=== PATIENT | female | born 1995 | race Caucasian/White ===

== ENCOUNTER → 2018-03-03 | Outpatient (REF) | payer OTHER, SELFPAY | LOC: LAB 11:30 | PROVIDERS: Visit Provider Nurse Practitioner Family | DX: R50.9 Fever, unspecified (principal); R05 Cough | CPT/HCPCS: 87400; 99058 ==

== ENCOUNTER → 2018-11-24 16:01 | Outpatient (REF) | payer OTHER, SELFPAY | LOC: LAB 16:01 | PROVIDERS: Visit Provider Nurse Practitioner Family | DX: N39.0 Urinary tract infection, site not specified (principal) | CPT/HCPCS: 87077; 87086; 87186 ==

== ENCOUNTER → 2019-01-25 16:00 | Outpatient (REF) | payer OTHER, SELFPAY | LOC: LAB 16:00 | PROVIDERS: Visit Provider Nurse Practitioner Family | DX: N39.0 Urinary tract infection, site not specified (principal) | CPT/HCPCS: 87086 ==

== ENCOUNTER 2019-07-05 19:12 | Emergency (ER) | payer OTHER, SELFPAY ==
[2019-07-05 19:26] VITALS: BP 104/73; PULSE 94; RESP 15; TEMP 37.1; O2SAT 96; BMI 21.9
--- NOTE | 2019-07-05 21:03 | ED_ITS ---
HPI - Headache General Chief Complaint: Headache Stated Complaint: headache, vomiting, body pain Time Seen by Provider: 07/05/19 20:27 Source: patient Mode of arrival: ambulatory Limitations: no limitations History of Present Illness HPI Narrative: The patient is a 23-year-old female who presents with headache. He says he has actually had a headache for about a week. However 2 days ago she started to have fever and sweats and her headache has progressively gotten worse. She has been vomiting unable to keep anything down. She typically does not get migraines this is worse headache she has ever had. She was seen by her PCP yesterday they did blood work and prescribed her antibiotics for sinus infection. She states that her sinuses are not extremely tender. She overall feels worse. She is able to move her neck however most it makes her head worse. She no rashes. Complaint: headache Related Data Previous Rx's Medication Instructions Recorded ondansetron 4 mg PO Q8H PRN #10 tab 07/05/19 Allergies Allergy/AdvReac Type Severity Reaction Status Date / Time acetaminophen [From Lortab] Allergy Verified 07/05/19 19:26 adhesive Allergy Verified 07/05/19 19:26 hydrocodone [From Lortab] Allergy Verified 07/05/19 19:26 metoclopramide [From Reglan] Allergy Verified 07/05/19 19:26 promethazine Allergy Verified 07/05/19 19:26 Review of Systems Review of Systems ROS Unobtainable: All systems reviewed & are unremarkable except as noted in HPI and below Constitutional Constitutional: Reports body ache(s), Reports chills, Reports fatigue, Reports fever(s) and Reports poor appetite Eyes Eyes: Denies change in vision, Denies eye discharge, Denies irritation and Denies loss of vision ENT Ears, Nose, Mouth, and Throat: Denies change in voice, Denies neck pain and Denies sore throat Cardiovascular Cardiovascular: Denies chest pain, Denies irregular heart rhythm, Denies lightheadedness, Denies palpitations, Denies dyspnea, Denies dyspnea on exertion and Denies orthopnea Respiratory Respiratory: Denies cough, Denies dyspnea, Denies dyspnea on exertion and Denies wheezing Gastrointestinal Gastrointestinal: Denies abdominal pain, Denies change in bowel habits, Denies diarrhea, Denies nausea and Denies vomiting Genitourinary Genitourinary: Denies hematuria, Denies flank pain, Denies urinary incontinence and Denies urinary urgency Musculoskeletal Musculoskeletal: Denies neck pain Integumentary/Breasts Skin/Breast: Denies pruritus, Denies erythema, Denies rash and Denies wounds Neurologic Neurologic: Denies loss of vision Endocrine Endocrine: Reports fatigue and Denies palpitations Allergic/Immunologic Allergic/Immunologic: Denies wheezing [facility] Medical History Status post tubal ligation (Acute) Tachycardia (Acute) Surgical History Status post appendectomy (Acute) Social History Smoking Status: Unknown if ever smoked Social History (Updated 07/05/19 @ 21:15 by Rosalina Corona DO) marital status: Smoking Status: Unknown if ever smoked Exam Initial Vital Signs Initial Vital Signs: Vital Signs Temperature 98.8 F 07/05/19 19:26 Pulse Rate 94 H 07/05/19 19:26 Respiratory Rate 15 07/05/19 19:26 Blood Pressure 104/73 07/05/19 19:26 Pulse Oximetry 96 07/05/19 19:26 GENERAL: Alert female and in no acute distress. HEENT: Head atraumatic,EOMI, pupils reactive, moves neck easily negative Brudzinski's EARS: Tympanic membranes visualized, no erythema or bulging, no hemotympanum PHARYNX: No erythema, no tonsillar exudate, no cervical lymphadenopathy CARDIOVASCULAR: Regular rate and rhythm without murmurs, rubs or gallops. RESPIRATORY: Breath sounds equal bilaterally, no wheezes rales or rhonchi. ABDOMEN: Soft, nontender. Normoactive bowel sounds all 4 quadrants. No guarding or rebound. : No CVA tenderness EXTREMITIES: Normal range of motion, no clubbing or edema. Neurovascularly intact NEUROLOGICAL: Alert and oriented x4.Normal gait and speech. Cranial nerves II through XII grossly intact. [Good catilp-me-byvc, good uumn-xs-slfi, strengno rashes or lesions. Skin: No rash no vesicles no lesions Course Orders Ordered: ED Orders 07/05/19 20:45 Complete Blood Count AUTO DIFF Stat Comprehensive Metabolic Panel Stat Lipase Stat Test Serum,Qual Stat Procalcitonin Stat 07/05/19 21:10 CT head/brain wo con Stat XR chest 2V Stat 07/05/19 21:27 Blood Culture Stat 07/05/19 21:32 Lactate (Lactic Acid) Stat Discontinued Medications Hydromorphone HCl (Dilaudid) 0.5 mg IV NOW ONE Stop: 07/05/19 23:10 Last Admin: 07/05/19 23:16 Dose: 0.5 mg Documented by: LANDY Sodium Chloride (Normal Saline 0.9%) 1,000 mls @ 1,000 mls/hr IV BOLUS ONE Stop: 07/05/19 22:09 Last Infusion: 07/05/19 23:16 Dose: 0 mls/hr Documented by: Admin: 07/05/19 21:33 Dose: 1,000 mls/hr Documented by: LANDY Ketorolac Tromethamine (Toradol) 15 mg IV NOW ONE Stop: 07/05/19 21:13 Last Admin: 07/05/19 21:33 Dose: 15 mg Documented by: LANDY Ondansetron HCl (Zofran) 4 mg IV NOW ONE Stop: 07/05/19 21:13 Last Admin: 07/05/19 21:33 Dose: 4 mg Documented by: LANDY Vital Signs Vital signs: Vital Signs - 8 hr 07/05/19 19:26 07/06/19 00:15 Temperature 98.8 F Pulse Rate 94 H 55 L Respiratory Rate 15 Blood Pressure 104/73 96/46 L Pulse Oximetry 96 98 MDM - Headache Lab Data Attestation: I reviewed the patient's lab results. Result diagrams: 07/05/19 20:45 07/05/19 20:45 Labs: Lab Results 07/05/19 07/05/19 07/05/19 Range/Units 20:45 20:45 20:45 WBC 7.3 (4.5-11.0) X10^3/uL RBC 5.08 (4.0-5.2) X10^6/uL Hgb 14.3 (12.0-16.0) g/dL Hct 42.4 (36-46) % MCV 83.4 (80-100) fL MCH 28.1 (26-34) PG MCHC 33.6 (30-36) % RDW 13.9 (11.6-14.8) % Plt Count 277 (150-400) X10^3/uL Neut % (Auto) 69.9 (50-75) % Lymph % (Auto) 20.2 L (25-40) % [place] % (Auto) 8.5 (3-14) % Eos % (Auto) 0.9 L (2-4) % Baso % (Auto) 0.5 (0-2) % Neut # (Auto) 5100 (9146-9023) /uL Lymph # (Auto) 1500 (1877-1136) /uL [place] # (Auto) 600 (0-900) /uL Eos # (Auto) 100 (0-450) /uL Baso # (Auto) 0 (0-100) /uL Sodium 137 (137-145) mmol/L Potassium 3.5 (3.4-5.1) mmol/L Chloride 106 (98-107) mmol/L Carbon Dioxide 21 L (22-32) mmol/L BUN 13 (7-17) mg/dL Creatinine 0.90 (0.52-1.04) mg/dL Estimated GFR > 60.0 (>60) mL/min BUN/Creatinine Ratio 14.4 (6-22) Glucose 97 (70-100) mg/dL Lactate (0.7-2.1) mmol/L Calcium 9.3 (8.4-10.2) mg/dL Total Bilirubin 0.5 (0.2-1.3) mg/dL AST 34 (14-36) IU/L ALT 15 (9-52) IU/L Alkaline Phosphatase 80 (38-126) U/L Total Protein 8.1 (6.3-8.2) g/dL Albumin 4.5 (3.5-5.0) g/dL Globulin 3.6 (1.7-4.1) g/dL Albumin/Globulin Ratio 1.3 (1.0-2.8) Lipase (23-300) U/L Procalcitonin < 0.05 (<0.5) ng/mL Serum , Qual Negative (Negative) 07/05/19 07/05/19 Range/Units 20:45 21:32 WBC (4.5-11.0) X10^3/uL RBC (4.0-5.2) X10^6/uL Hgb (12.0-16.0) g/dL Hct (36-46) % MCV (80-100) fL MCH (26-34) PG MCHC (30-36) % RDW (11.6-14.8) % Plt Count (150-400) X10^3/uL Neut % (Auto) (50-75) % Lymph % (Auto) (25-40) % [place] % (Auto) (3-14) % Eos % (Auto) (2-4) % Baso % (Auto) (0-2) % Neut # (Auto) (6698-3112) /uL Lymph # (Auto) (3882-4788) /uL [place] # (Auto) (0-900) /uL Eos # (Auto) (0-450) /uL Baso # (Auto) (0-100) /uL Sodium (137-145) mmol/L Potassium (3.4-5.1) mmol/L Chloride (98-107) mmol/L Carbon Dioxide (22-32) mmol/L BUN (7-17) mg/dL Creatinine (0.52-1.04) mg/dL Estimated GFR (>60) mL/min BUN/Creatinine Ratio (6-22) Glucose (70-100) mg/dL Lactate 0.7 (0.7-2.1) mmol/L Calcium (8.4-10.2) mg/dL Total Bilirubin (0.2-1.3) mg/dL AST (14-36) IU/L ALT (9-52) IU/L Alkaline Phosphatase (38-126) U/L Total Protein (6.3-8.2) g/dL Albumin (3.5-5.0) g/dL Globulin (1.7-4.1) g/dL Albumin/Globulin Ratio (1.0-2.8) Lipase 148 (23-300) U/L Procalcitonin (<0.5) ng/mL Serum , Qual (Negative) Urine Dip Bedside Urine Glucose Negative Bedside Urine Bilirubin + 1 Bedside Urine Ketone +++ 80 Urine Specific [place] 1.015 Bedside Urine Occult Blood - Negative Bedside Urine pH 6.5 Bedside Urine Protein +/- 15 Bedside Urine Urobilinogen +/- 1mg Bedside Urine Nitrite - Negative Bedside Urine Leukocytes - Negative Esterase Imaging Data CT scan - head: 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 She is moving her neck fairly easily no fever white count or elevated procalcitonin or lactic acid in the ED. I do not suspect any sort of meningitis. I did discuss with patient next step would be lumbar puncture however she adamantly refused. Headache is better after Dilaudid. She overall is feeling better and ready to go home. Discharge Plan Departure Patient Disposition: Home Clinical Impression: Headache Qualifiers: Headache type: unspecified Headache chronicity pattern: unspecified pattern Intractability: not intractable Qualified Code(s): R51 - Headache Discharge Date/Time: 07/06/19 00:17 Instructions: DI for Headache Activity Restrictions/Additional Instructions: *You have been diagnosed with headache *What to do: At this time no source of infection found if there is infection. Head CT is negative. If headache and fever or persistent you will require a spinal tap Recommend resting and increasing fluid intake *Continue to take medications as directed Zofran 4 mg every 8 hours if needed for nausea or vomiting *Follow up with your primary care provider in 2-3 days *Return to ER if you should have increasing headache, fever, neck pain, rash, or any new, worsening or concerning symptoms Prescriptions: New ondansetron 4 mg tablet,disintegrating 4 mg PO Q8H PRN (Reason: nausea and vomiting) Qty: 10 RF: 0
--- NOTE | 2019-07-05 21:10 | DI.CT.S_ITS ---
PROCEDURE: CT HEAD/BRAIN WO CON INDICATIONS: severe headache TECHNIQUE: Noncontrast 4.5 mm thick angled axial sections acquired from the foramen magnum to the vertex, with coronal and sagittal reformats. For radiation dose reduction, the following was used: automated exposure control, adjustment of mA and/or kV according to patient size. COMPARISON: None. FINDINGS: Image quality: Excellent. CSF spaces: Basal cisterns are patent. No extra-axial fluid collections. Ventricles are normal in size and shape. Brain: No midline shift. No intracranial masses or hemorrhage. Rivas-white matter interface is normal. Skull and face: Calvarium and visualized facial bones are intact, without suspicious lesions. Sinuses: Visualized sinuses and mastoids are clear. IMPRESSION: No acute intracranial disease process. Dictated by: Kasie Chairez MD, PhD on 07/06/2019 at 7:35 Approved by: Kasie Chairez MD, PhD on 07/06/2019 at 7:36
--- NOTE | 2019-07-05 21:10 | DI.RAD.S_ITS ---
PROCEDURE: XR CHEST 2V INDICATIONS: fever TECHNIQUE: 2 views of the chest were acquired. COMPARISON: None. FINDINGS: Surgical changes and devices: None. Lungs and pleura: Lungs are clear. No pleural effusions or pneumothorax. Mediastinum: Mediastinal contours are normal. Heart size is normal. Bones and chest wall: No suspicious bony abnormalities. Soft tissues appear unremarkable. IMPRESSION: No acute cardiopulmonary disease process. Dictated by: Kasie Chairez MD, PhD on 07/06/2019 at 8:29 Approved by: Kasie Chairez MD, PhD on 07/06/2019 at 8:30
[2019-07-05 21:23] LABS: Add Manual Diff / Slide Review NO; Basophils Absolute Auto 0 /uL (0-100); Basophils Percent Auto 0.5 % (0-2); Eosinophils Absolute Auto 100 /uL (0-450); Eosinophils Percent Auto 0.9 % (2-4); Hematocrit 42.4 % (36-46); Hemoglobin 14.3 g/dL (12.0-16.0); Lymphocytes Absolute Auto 1500 /uL (1100-4500); Lymphocytes Percent Auto 20.2 % (25-40); Mean Corpuscular HGB Conc 33.6 % (30-36); Mean Corpuscular Hemoglobin 28.1 PG (26-34); Mean Corpuscular Volume 83.4 fL (80-100); Monocytes Absolute Auto 600 /uL (0-900); Monocytes Percent Auto 8.5 % (3-14); Neutrophils Absolute Auto 5100 /uL (1500-7000); Neutrophils Percent Auto 69.9 % (50-75); Platelet Count 277 X10^3/uL (150-400); Red Blood Cell Count 5.08 X10^6/uL (4.0-5.2); Red Cell Distribution Width 13.9 % (11.6-14.8); White Blood Cell Count 7.3 X10^3/uL (4.5-11.0)
[2019-07-05 21:28] LABS: Lipase 148 U/L (23-300)
[2019-07-05 21:30] LABS: Alanine Aminotransferase 15 IU/L (9-52); Albumin 4.5 g/dL (3.5-5.0); Albumin Globulin Ratio 1.3 (1.0-2.8); Alkaline Phosphatase 80 U/L (38-126); Aspartate Aminotransferase 34 IU/L (14-36); BUN Creatinine Ratio 14.4 (6-22); Bilirubin Total 0.5 mg/dL (0.2-1.3); Blood Urea Nitrogen 13 mg/dL (7-17); Calcium 9.3 mg/dL (8.4-10.2); Carbon Dioxide 21 mmol/L (22-32); Chloride 106 mmol/L (98-107); Estimated Glomerular Filt Rate > 60.0 mL/min (>60); Globulin 3.6 g/dL (1.7-4.1); Glucose 97 mg/dL (70-100); HEMOLYSIS 37 (0-50); Potassium 3.5 mmol/L (3.4-5.1); Sodium 137 mmol/L (137-145); Total Protein 8.1 g/dL (6.3-8.2)
[2019-07-05] MEDS: SODIUM CHLORIDE 0.9% 1,000 ML 1000 ML IV (21:33)
[2019-07-05] MEDS: ONDANSETRON 4 MG/2 ML INJ IV (21:33)
[2019-07-05] MEDS: KETOROLAC 60 MG/2 ML VIAL 15 MG IV (21:33)
[2019-07-05 21:44] LABS: Procalcitonin < 0.05 ng/mL (<0.5)
[2019-07-05 21:46] LABS: Pregnancy Test Serum,Qual Negative (Negative)
[2019-07-05 21:49] LABS: Lactate (Lactic Acid) 0.7 mmol/L (0.7-2.1)
[2019-07-05] MEDS: HYDROMORPHONE 0.5 MG INJ IV (23:16)
[2019-07-06 00:15] VITALS: BP 96/46; PULSE 55; O2SAT 98
== END 2019-07-06 00:17 | disposition home or self-care (01) ==
PROVIDERS: Emergency Provider Emergency Medicine
DX: R51 Headache (principal)
CPT/HCPCS: 36415; 36591; 70450; 71046; 80053; 81003; 83605; 83690; 84145; 84703; 85025; 87040; 96361; 96374; 96375; 99283; 99284; J1170; J1885; J2405

== ENCOUNTER → 2020-12-09 11:54 | Outpatient (CLI) | payer OTHER, SELFPAY ==
--- NOTE | 2020-12-09 | DI.RAD.S_ITS ---
PROCEDURE: XR FOOT LT MIN 3V INDICATIONS: LEFT FOOT PAIN TECHNIQUE: 3 views of the foot were acquired. COMPARISON: None. FINDINGS: Bones: No fractures or dislocations. No suspicious bony lesions. Soft tissues: No tibiotalar joint effusion. Achilles tendon appears normal. IMPRESSION: No trauma found, source of asymmetric foot pain is not identified. Dictated by: Hai Underwood M.D. on 12/09/2020 at 13:47 Approved by: Hai Underwood M.D. on 12/09/2020 at 13:47
== END ==
PROVIDERS: PCP Nurse Practitioner Family; Referring Provider Nurse Practitioner Family; Visit Provider Nurse Practitioner Family
DX: M79.675 Pain in left toe(s) (principal)
CPT/HCPCS: 73630